=== PATIENT | female | born 1990 | race Caucasian/White ===

== ENCOUNTER → 2016-07-31 | Outpatient (CLI) | payer OTHER ==
[~2016-07-31] VITALS: Ht 177.8 cm; Wt 90.0 kg
[~2016-07-31] MED LIST: CLARITIN10 MG PO; NAPROSYN500 MG PO; PRENATAL TABLE1 EAC3 PO
[2016-07-31 10:42] VITALS: BP 134/83
== END | disposition home or self-care (01) ==
LOC: IVINF 10:25
DX: Z31.82 Encounter for Rh incompatibility status (principal); Z3A.28 28 weeks gestation of pregnancy; Z67.11 Type A blood, Rh negative
CPT/HCPCS: 96372; J2790

== ENCOUNTER 2016-10-15 15:35 | Inpatient (IN) | payer OTHER ==
[2016-10-15] VITALS (22 sets, daily range): BP systolic 122–153; BP diastolic 58–100
[~2016-10-15] VITALS: Ht 180.3 cm; Wt 98.0 kg
[2016-10-15 17:23] LABS: EOSINOPHIL (%) 0.3 % (0-5); HEMATOCRIT 35.9 % (36.0-46.0); IMMATURE GRANULOCYTE (%) 0.5 % (0.0-0.7); IMMATURE GRANULOCYTE COUNT 0.1 K/uL; INSTRUMENT ABS NEUTROPHIL CT 11.9 K/uL; LYMPHOCYTE COUNT 2.2 K/uL (1.0-2.8); MCH 27.9 PG (29.0-34.0); MCHC 32.6 G/DL (30.0-36.0); MCV 85.7 FL (83-99); MONOCYTE (%) 5.8 % (3-12); MONOCYTE COUNT 0.9 K/uL (0-0.8); NEUTROPHIL (%) 78.5 % (45-76); NEUTROPHIL COUNT 11.9 K/uL (1.8-6.4); PLATELET COUNT 276 K/uL (156-360); RBC DIS.WIDTH-CV 14.9 % (11.8-14.6); RBC DIS.WIDTH-SD 45.1 % (39-53); RED BLOOD COUNT 4.19 M/uL (3.80-5.20); WHITE BLOOD COUNT 15.1 K/uL (4.1-10.2)
[2016-10-15] MEDS ORDERED: MOTRIN800 MG PO (22:49)
[2016-10-16 00:25] VITALS: BP 128/77
[2016-10-16 01:25] VITALS: BP 137/77
[2016-10-16 06:56] LABS: EOSINOPHIL (%) 0.3 % (0-5); EOSINOPHIL COUNT 0.1 K/uL (0-0.3); HEMATOCRIT 31.5 % (36.0-46.0); IMMATURE GRANULOCYTE (%) 0.6 % (0.0-0.7); IMMATURE GRANULOCYTE COUNT 0.1 K/uL; INSTRUMENT ABS NEUTROPHIL CT 14.4 K/uL; LYMPHOCYTE COUNT 2.8 K/uL (1.0-2.8); MCH 26.8 PG (29.0-34.0); MCHC 31.4 G/DL (30.0-36.0); MCV 85.4 FL (83-99); MEAN PLAT.VOLUME 12.1 uM^3 (9.5-12.4); MONOCYTE (%) 6.8 % (3-12); MONOCYTE COUNT 1.3 K/uL (0-0.8); NEUTROPHIL COUNT 14.4 K/uL (1.8-6.4); PLATELET COUNT 227 K/uL (156-360); RBC DIS.WIDTH-CV 15.1 % (11.8-14.6); RED BLOOD COUNT 3.69 M/uL (3.80-5.20); WHITE BLOOD COUNT 18.7 K/uL (4.1-10.2)
[2016-10-16 08:00] VITALS: BP 125/87
[2016-10-16 14:18] VITALS: BP 127/81
[2016-10-16 22:28] VITALS: BP 137/91
[2016-10-17 07:14] VITALS: BP 133/83
== END 2016-10-17 14:10 | disposition home or self-care (01) | DRG 775 ==
LOC: LDRP-OP → 2WEST 15:38 → LDRP-OP 11-20 17:11
PROVIDERS: Midwife
PROC: 00HU33Z Insertion of Infusion Device into Spinal Canal, Percutaneous Approach (ICD-10-PCS; principal; 2016-10-15)
PROC: 10E0XZZ Delivery of Products of Conception, External Approach (ICD-10-PCS; principal; 2016-10-15)
PROC: 0UQGXZZ Repair Vagina, External Approach (ICD-10-PCS; principal; 2016-10-15)
PROC: 3E0S3CZ (ICD-10-PCS; principal; 2016-10-15)
DX: O71.4 Obstetric high vaginal laceration alone (principal); Z3A.39 39 weeks gestation of pregnancy; Z37.0 Single live birth; D50.9 Iron deficiency anemia, unspecified; O99.02 Anemia complicating childbirth; Z87.891 Personal history of nicotine dependence; O36.0930 Maternal care for other rhesus isoimmunization, third trimester, not applicable or unspecified
CPT/HCPCS: 85025; C1755; J3010; J7120